=== PATIENT | male | born 1960 | race Caucasian/White ===

== ENCOUNTER → 2022-08-25 15:48 | Outpatient (BNVA) | payer OTHER, SELFPAY | PROVIDERS: Family Provider Nurse Practitioner Family; Visit Provider Family Medicine | DX: R68.89 Other general symptoms and signs (principal); J02.0 Streptococcal pharyngitis | CPT/HCPCS: 87400; 87426 ==

== ENCOUNTER → 2023-04-03 09:26 | Outpatient (BNVA) | payer OTHER, SELFPAY | PROVIDERS: Family Provider Nurse Practitioner Family; PCP Internal Medicine; Visit Provider Emergency Medicine | DX: R68.89 Other general symptoms and signs (principal); J02.9 Acute pharyngitis, unspecified | CPT/HCPCS: 87071; 87400; 87426; 87880 ==